=== PATIENT | female | born 1990 | race African-American/Black ===

== ENCOUNTER 2022-06-14 07:40 | Emergency (ER) | payer OTHER ==
[2022-06-14] MEDS ORDERED: Ondansetron PF 4 MG/2 ML Vial ONE (08:08)
[2022-06-14 08:35] LABS: Anion Gap 14 mmol/L (10-20); BUN (Urea Nitrogen) 6 mg/dL (7.0-18.7); Calc. Creatinine Clearance 0 mL/min (70-130); Calcium 9.3 mg/dL (7.8-10.44); Carbon Dioxide 20 mmol/L (22-29); Chloride 107 mmol/L (98-107); Estimated GFR 120; Glucose 88 mg/dL (70-105); Potassium 3.5 mmol/L (3.5-5.1); Sodium 137 mmol/L (136-145)
[2022-06-14 08:53] LABS: Hemoglobin 9.1 g/dL (12.0-15.5); Mean Corpuscular HGB CONC 37.3 g/dL (32.0-36.0); Mean Corpuscular Hemoglobin 31.7 pg (27.0-33.0); Platelet Count 339 10x3/uL (150-450); Red Blood Cell (RBC) Count 2.87 10x6/uL (3.90-5.03); White Blood Cell (WBC) Count 10.6 10x3/uL (3.5-10.5)
[2022-06-14 08:54] LABS: Manual Diff?? YES; Mean Platelet Volume 11.2 fl (7.4-10.4)
[2022-06-14 08:55] LABS: Bilirubin Neg (Negative); Blood, Urine Negative (Negative); Clarity Clear (Clear); Glucose, Urine (Dipstick) Normal (Negative); Ketone, Urine Negative (Negative); Leukocyte Negative (Negative); Nitrite Negative (Negative); Protein, Urine (Dipstick) Negative (Neg-Trace); Specific Gravity, Urine 1.015 (1.005-1.030); Urobilinogen Normal mg/dL (Less than 2)
[2022-06-14 08:55] LABS: MDiff Complete? YES
[2022-06-14 09:19] LABS: Eosinophils 2 % (0-10); Lymphocytes 34 % (21-51); Monocytes 6 % (0-10); Neutrophil 55 % (42-75); Platelet Morphology Comment Appears Adequate; Reactive Lymphocytes 3 % (0-10)
[2022-06-14 09:20] LABS: Anisocytosis SLIGHT = 6-15 cells (100X) (0-5/hpf); Hypochromia SLIGHT = 6-15 cells (100X) (0-5/hpf); Macrocytosis SLIGHT = 6-15 cells (100X) (0-5/hpf); Microcytosis SLIGHT = 6-15 cells (100X) (0-5/hpf)
[2022-06-14 09:21] LABS: Large Platelets SLIGHT
== END 2022-06-14 10:11 | disposition home or self-care (01) ==
LOC: CSHERS 07:40
DX: O20.0 Threatened abortion (principal); Z3A.08 8 weeks gestation of pregnancy
CPT/HCPCS: 36415; 76817; 80048; 81003; 83735; 84702; 85025; 86900; 86901; 96374; J2405